=== PATIENT | female | born 1940 | race Caucasian/White ===

== ENCOUNTER → 2017-06-18 | Outpatient (CLI) | payer MEDICARE ==
[~2017-06-18] MED LIST: ASPI-983 PO; CHLO25TA22 PO; CLD600T PO; FELO5TAB3 PO; FLD5TCR; FLD5TCR PO; KCL10CCR PO; LEVO500T69 PO; LNS30CCR; LVT.1T PO; METR500T PO; NFCHLORT25 PO; OMEP40CA36 PO; PEG250PW PO; PLENDIL; TRIA1CAP4 PO; [UNRECOGNIZED DRUG - OTHER]; [UNRECOGNIZED DRUG - OTHER]
--- NOTE | 2017-06-19 14:12 | Diagnostic Imaging Report ---
EXAMINATION: Bilateral screening mammogram 2D views with tomosynthesis. The current study was also evaluated with a Computer Aided Detection (CAD) system. INDICATION: Screening. PERSONAL HISTORY: No current complaints stated on the questionnaire. COMPARISON: 03/13/2016. FINDINGS: The breasts are composed of scattered fibroglandular densities. Occasional benign-appearing calcifications are noted. Allowing for technique and positional differences, no suspicious change is seen. IMPRESSION: No significant change. ACR BI-RADS Category 2: Benign findings. Result letter will be mailed to the patient. Note: At least 10% of breast cancer is not imaged by mammography. Dictated by: Dictated on workstation # [id number]
== END ==
LOC: RAD 10:41
PROVIDERS: ATTEND Nurse Practitioner Family
DX: Z12.31 Encounter for screening mammogram for malignant neoplasm of breast (principal)
CPT/HCPCS: 77067

== ENCOUNTER → 2018-06-24 | Outpatient (CLI) | payer MEDICARE ==
--- NOTE | 2018-06-27 16:51 | Diagnostic Imaging Report ---
Indication: Routine screening. Comparison is made with prior mammogram from 06/18/2017 and 03/13/2016. 2-D and 3-D bilateral screening mammography was performed with CAD. Scattered fibroglandular densities are identified bilaterally. Benign-appearing calcifications are noted bilaterally. Intraparenchymal lymph nodes in the outer portion of the left breast is stable. No new mass or malignant-appearing microcalcifications are seen. Axillae are unremarkable. Impression: BI-RADS category 2 No mammographic features suspicious for malignancy are identified. ACR BI-RADS Category 2: Benign findings. Result letter will be mailed to the patient. Note: At least 10% of breast cancer is not imaged by mammography. Dictated by: Dictated on workstation # [id number]
== END ==
LOC: RAD 11:08
PROVIDERS: ATTEND Nurse Practitioner Family
DX: Z12.31 Encounter for screening mammogram for malignant neoplasm of breast (principal)
CPT/HCPCS: 77067

== ENCOUNTER 2018-07-05 10:03 | Outpatient (CLI) | payer MEDICARE ==
[~2018-07-05] VITALS: Ht 170.2 cm; Wt 106.3 kg
[2018-07-05] MEDS ORDERED: CALC-140 PO (10:13)
[2018-07-05] MEDS ORDERED: LEVO100T7 PO (10:13)
[2018-07-05] MEDS ORDERED: POTA10TA10 PO (10:13)
[2018-07-05 10:20] VITALS: BP 144/84
[2018-07-05 11:13] LABS: BASOPHILS # (AUTO) 0.1 10^3/uL (0.0-0.1); BASOPHILS % (AUTO) 1 % (0-10); EOSINOPHILS # (AUTO) 0.2 10^3/uL (0.0-0.3); EOSINOPHILS % (AUTO) 3 % (0-10); HEMATOCRIT 45 % (35-52); HEMOGLOBIN 15.9 G/DL (11.5-16.0); LYMPHOCYTES # (AUTO) 2.2 X 10^3 (1.0-4.0); LYMPHOCYTES % (AUTO) 28 % (12-44); MEAN CORPUSCULAR HEMOGLOBIN 29 PG (25-34); MEAN CORPUSCULAR HGB CONC 35 G/DL (32-36); MEAN CORPUSCULAR VOLUME 82 FL (80-99); MEAN PLATELET VOLUME 10.2 FL (7.4-10.4); MONOCYTES # (AUTO) 0.5 X 10^3 (0.0-1.0); MONOCYTES % (AUTO) 7 % (0-12); NEUTROPHILS # (AUTO) 4.8 X 10^3 (1.8-7.8); NEUTROPHILS % (AUTO) 61 % (42-75); PLATELET COUNT 264 10^3/uL (130-400); RED BLOOD COUNT 5.53 10^6/uL (4.35-5.85); WHITE BLOOD COUNT 7.8 10^3/uL (4.3-11.0)
[2018-07-05 11:17] LABS: BILIRUBIN,URINE NEGATIVE (NEGATIVE); CLARITY,URINE CLEAR; COLOR,URINE YELLOW; GLUCOSE, URINE (UA) NEGATIVE (NEGATIVE); KETONES,URINE NEGATIVE (NEGATIVE); LEUKOCYTE ESTERASE ,URINE NEGATIVE (NEGATIVE); NITRITE,URINE NEGATIVE (NEGATIVE); PH,URINE 8 (5-9); PROTEIN,URINE NEGATIVE (NEGATIVE); UROBILINOGEN,URINE NORMAL (NORMAL)
[2018-07-05 11:27] LABS: BACTERIA,URINE NEGATIVE /HPF
[2018-07-05 11:27] LABS: PROTHROMBIN TIME PATIENT 13.1 SEC (12.2-14.7)
[2018-07-05 11:32] LABS: ERYTHROCYTE SEDIMENTATION RATE 2 MM/HR (0-30)
[2018-07-05 12:09] LABS: ALANINE AMINOTRANSFERASE 18 U/L (0-55); ALBUMIN 4.3 GM/DL (3.2-4.5); ALKALINE PHOSPHATASE 80 U/L (40-136); BILIRUBIN,TOTAL 0.9 MG/DL (0.1-1.0); BUN/CREATININE RATIO 28; CALCIUM 9.9 MG/DL (8.5-10.1); CARBON DIOXIDE 24 MMOL/L (21-32); CHLORIDE 101 MMOL/L (98-107); CREATININE SERUM 0.83 MG/DL (0.60-1.30); GFR ESTIMATED > 60; GLUCOSE 98 MG/DL (70-105); POTASSIUM 3.3 MMOL/L (3.6-5.0); SODIUM 138 MMOL/L (135-145); TOTAL PROTEIN 7.4 GM/DL (6.4-8.2)
--- NOTE | 2018-07-05 13:02 | Diagnostic Imaging Report ---
PATIENT HISTORY: Preoperative evaluation of cardiac and pulmonary structures prior to administration of anesthesia. TECHNIQUE: Two views of the chest. COMPARISON: 11/23/2015. FINDINGS: The lung volumes are normal. No focal consolidation is seen. No large pleural effusion or pneumothorax is seen. The cardiomediastinal silhouette is normal in size and contour. No acute osseous abnormality is seen. There are mild degenerative changes in the thoracic spine. IMPRESSION: No acute pulmonary abnormality seen. Dictated by: Dictated on workstation # [id number]
== END 2018-07-05 15:27 | disposition home or self-care (01) ==
LOC: PREOP 10:03
PROVIDERS: ATTEND Orthopaedic Surgery
DX: Z01.810 Encounter for preprocedural cardiovascular examination (principal); Z01.811 Encounter for preprocedural respiratory examination; Z01.812 Encounter for preprocedural laboratory examination; M17.11 Unilateral primary osteoarthritis, right knee; R53.83 Other fatigue; Z11.2 Encounter for screening for other bacterial diseases
CPT/HCPCS: 36415; 71046; 80053; 81000; 85025; 85610; 85652; 86850; 86900; 86901; 87081; 93005

== ENCOUNTER → 2019-08-05 | Outpatient (CLI) | payer MEDICARE ==
[~2019-08-05] MED LIST changes: +CALC-140 PO; +LEVO100T7 PO; +POTA10TA10 PO
--- NOTE | 2019-08-05 13:12 | Diagnostic Imaging Report ---
INDICATION: Routine screening. COMPARISON: 06/24/2018 and 06/18/2017. TECHNIQUE: 2D and 3D bilateral screening mammography was performed with CAD. FINDINGS: Scattered fibroglandular densities are identified bilaterally. There are scattered benign calcifications bilaterally. Benign nodular densities in both breasts appear stable. No spiculated mass or malignant appearing microcalcifications are seen. The axillae are unremarkable. IMPRESSION: No mammographic features suspicious for malignancy are identified. ACR BI-RADS Category 2: Benign findings. Result letter will be mailed to the patient. Note: At least 10% of breast cancer is not imaged by mammography. Dictated by: Dictated on workstation # [id number]
== END ==
LOC: RAD 11:23
PROVIDERS: ATTEND Family Medicine
DX: Z12.31 Encounter for screening mammogram for malignant neoplasm of breast (principal)
CPT/HCPCS: 77067

== ENCOUNTER 2020-08-25 05:30 | Outpatient (RCR) | payer MEDICARE ==
[~2020-08-25] VITALS: Ht 175 cm; Wt 100.0 kg
[~2020-08-25 05:30] MED LIST changes: +ASPI-1238 PO; -ASPI-983 PO; -FELO5TAB3 PO; +L.AC1CAP6 PO; +OMEP40CA27 PO; +POTA10CA43 PO; +ZINC50TA11 PO
== END 2020-08-25 10:08 | disposition home or self-care (01) ==
LOC: PREOP 05:30
PROVIDERS: ATTEND Internal Medicine
DX: Z01.812 Encounter for preprocedural laboratory examination (principal); Z12.11 Encounter for screening for malignant neoplasm of colon; Z20.822 Contact with and (suspected) exposure to COVID-19; Z80.0 Family history of malignant neoplasm of digestive organs
CPT/HCPCS: 87635

== ENCOUNTER 2020-08-27 07:14 | Day surgery (SDC) | payer MEDICARE ==
--- NOTE | 2020-08-17 08:58 | HISTORY AND PHYSICAL ---
DATE OF SERVICE: COLONOSCOPY HISTORY AND PHYSICAL HISTORY OF PRESENT ILLNESS: The patient is a 80-year-old white female referred for screening colonoscopy. Her mother succumbed to colon cancer in her late 60s. Brother had 2 polyps, possibly malignant, have removed in his 60s as well. He did not require colon surgery. She reports otherwise she has been feeling well. On one occasion, she did note some bright red blood per rectum that she attributed to hemorrhoids over a month ago. This has not recurred. She does have some intermittent diarrhea. She had been given Flagyl, which causes a lot of nausea and interestingly lead to constipation while she was on it. She has backed usual bowel habit of having loose stools about once a week. She will have a 2 or 3, mostly in the morning. Denies any nocturnal stool. Weight has been stable. She denies any significant abdominal pain, cramping or bloating unless she is having constipation. PAST MEDICAL HISTORY: Significant for several bouts of diverticulitis. She did require admission several years ago for IV antibiotics. She has history of hypertension and hypothyroidism for which she is on replacement and has known gastroesophageal reflux, she reports well controlled on omeprazole 40 mg daily. PAST SURGICAL HISTORY: She had a cholecystectomy in 1989, right breast biopsy that was benign in 1988. She had one ovary and hysterectomy in 1967 secondary to endometriosis. She had had the other ovary removed at the age of 19 due to a benign growth. Her last colonoscopy was in 2012 revealing moderate diverticular disease with no neoplasia, previous polyp. She had had several adenomatous colonic polyps were removed. No dysplasia. SOCIAL HISTORY: She is retired and lives with her spouse with no smoking and only rare alcohol intake. PHYSICAL EXAMINATION: GENERAL: Reveals a pleasant white female in no acute distress. HEENT: Remarkable. Mallampati 3 pharyngeal configuration. CHEST: Clear to auscultation. CARDIOVASCULAR: Reveals a regular rate and rhythm without murmur, S3 or S4. ABDOMEN: Soft, supple without mass, organomegaly or tenderness. EXTREMITIES: Reveal no cyanosis, clubbing or edema. ASSESSMENT AND PLAN: Due to family history for colon cancer in her mother and possibly brother, she is set up for screening colonoscopy. Due to Mallampati 3 oropharyngeal configuration and history of diverticulitis, we will be doing the patient under Diprivan based anesthesia. I thank you for the referral of this pleasant lady. Job ID: [id number] DocumentID: [id number] Dictated Date: 08/02/2020 13:31:06 [employer] Date: 08/02/2020 14:01:56 Dictated By: SAUL POND MD
[~2020-08-27] VITALS: Ht 175 cm; Wt 100.0 kg
[2020-08-27] MEDS ORDERED: D5 LR IV SOLUTION 1,000 ML IV STA (07:24)
[2020-08-27] MEDS ORDERED: LIDOCAINE JELLY 2% 6 ML SYRINGE MM PRN (07:30)
[2020-08-27 07:32] VITALS: BP 176/91
[2020-08-27] MEDS ORDERED: D5 LR IV SOLUTION 1,000 ML IV ONE (07:33)
[2020-08-27] MEDS ORDERED: proPOfol 200 MG/20 ML (DIPRIVAN) VIAL IV ONE (08:09)
--- NOTE | 2020-08-27 08:09 | Pre-Op Note & Conscious Sedat ---
Pre-Operative Progress Note H&P Reviewed The H&P was reviewed, patient examined and no changes noted. Date H&P Reviewed: Aug 27, 2020 Time H&P Reviewed: 08:09 Conscious Sedation Pre-Proced ASA Score 2 For ASA 3 and 4: Consider anesthesia and medical clearance. Also, for patients with a history of failed moderate sedation consider anesthesia. Airway Lungs Heart ASA score ASA 1: a normal healthy patient ASA 2: a patient with a mild systemic disease (mid diabetes, controlled hypertension, obesity ASA 3: a patient with a severe systemic disease that limits activity (angina, COPD, prior Myocardial infarction) ASA 4: a patient with an incapacitating disease that is a constant threat to life (CHF, renal failure) ASA 5: a moribund patient not expected to survive 24 hrs. (ruptured aneurysm) ASA 6: a declared brain- patient whose organs are being harvested. For emergent operations, add the letter E after the classification Mallampati Classification Grade 3 Sedation Plan Analgesia, Amnesia, Plan communicated to team members, Discussed options with patient/fam, Discussed risks with patient/fam The patient is an appropriate candidate to undergo the planned procedure, sedation, and anesthesia. The patient immediately re-assessed prior to indication. SAUL POND MD Aug 27, 2020 08:09
[2020-08-27] MEDS ORDERED: LIDOCAINE JELLY 2% 6 ML SYRINGE ONE (08:10)
[2020-08-27 08:40] VITALS: BP 116/57
[2020-08-27 08:45] VITALS: BP 126/66
[2020-08-27 08:50] VITALS: BP 139/66
[2020-08-27 09:20] VITALS: BP 155/79
[2020-08-27 09:27] VITALS: BP 155/79
--- NOTE | 2020-08-27 10:15 | Anesthesia-General Post-Op ---
MAC Patient Condition Mental Status/LOC: Same as Preop Cardiovascular: Satisfactory Nausea/Vomiting: Absent Respiratory: Satisfactory Pain: Controlled Complications: Absent Post Op Complications Complications None Follow Up Care/Instructions Patient Instructions None needed. Anesthesiology Discharge Order Discharge Order Patient was seen after the procedure and she was doing well, no complaints, stable vital signs, no apparent adverse anesthesia problems. DOYLE CHU DO Aug 27, 2020 10:15
--- NOTE | 2020-08-27 16:59 | OPERATIVE REPORT ---
DATE OF SERVICE: COLONOSCOPY SUMMARY INDICATION FOR THE PROCEDURE: Screening colon, family history for colon cancer. DESCRIPTION OF PROCEDURE: The patient was placed in the left lateral decubitus position. Prior to undergoing colonoscopy, digital rectal evaluation was performed. Anal sphincter tone was normal and the perianal reflexes intact. Nonthrombosed palpable internal hemorrhoids were noted on digital rectal evaluation with no other abnormalities being noted. The colonoscope was inserted into the rectum and under direct visualization advanced to cecum. The cecum was identified by identification of the ileocecal valve and the cecal strap. Photographic documentation was obtained. Quality of prep was fair. Despite Diprivan based anesthesia, the patient did have an irritable bowel type response with colonic manipulation. There was no evidence for external hemorrhoids and several grade II internal hemorrhoid complexes were noted. The remainder of the rectum was unremarkable. Moderate diverticular disease without evidence for diverticulitis was noted throughout the sigmoid colon. There was one questionable proximal sigmoid polyp. It was biopsied and ablated and submitted for histopathology. A diminutive 3 x 4 mm sessile polyp was noted in the proximal ascending colon as well as a similar polyp at the splenic flexure. Both were biopsied and ablated with minimal blood loss. No further abnormalities were noted on colonoscopy to the cecum. ASSESSMENT: 1. Two possibly and possibly three diminutive polyps were removed via hot forceps today. Considering this patient's age and medical comorbidities as long as there are no surprise on histopathology report, would not advocate future surveillance colonoscopy despite family history. 2. Moderate diverticular disease confined to the sigmoid colon was present. 3. Several grade II internal hemorrhoid complexes were noted nonthrombosed. I thank you for the referral of this pleasant lady. Job ID: [id number] DocumentID: [id number] Dictated Date: 08/27/2020 10:34:00 [employer] Date: 08/27/2020 16:58:37 Dictated By: SAUL POND MD
== END 2020-08-27 09:29 | disposition home or self-care (01) ==
LOC: ENDO 07:14
PROVIDERS: ATTEND Internal Medicine
DX: Z12.11 Encounter for screening for malignant neoplasm of colon (principal); D12.2 Benign neoplasm of ascending colon; D12.3 Benign neoplasm of transverse colon; K52.9 Noninfective gastroenteritis and colitis, unspecified; K64.1 Second degree hemorrhoids; K57.30 Diverticulosis of large intestine without perforation or abscess without bleeding; I10 Essential (primary) hypertension; E03.9 Hypothyroidism, unspecified; K21.9 Gastro-esophageal reflux disease without esophagitis; Z79.899 Other long term (current) drug therapy; Z91.048 Other nonmedicinal substance allergy status; Z88.5 Allergy status to narcotic agent; Z88.1 Allergy status to other antibiotic agents; Z88.8 Allergy status to other drugs, medicaments and biological substances; Z90.710 Acquired absence of both cervix and uterus; Z83.71 Family history of colonic polyps; Z80.0 Family history of malignant neoplasm of digestive organs
CPT/HCPCS: 88305

== ENCOUNTER → 2020-10-12 | Outpatient (CLI) | payer MEDICARE ==
--- NOTE | 2020-10-12 13:56 | Diagnostic Imaging Report ---
INDICATION: Postmenopausal. COMPARISON: 01/06/2011 FINDINGS: The images from the previous exam of 01/06/2011 are not available. The report from the exam noted that the bone mineral density of the hips and spine was within normal limits. On this exam the total T score for the spine is -1.9. On the prior exam the T score was reported as 1.3. The total T score for the left hip is 0.4 and for the right hip 0.2. The respective T-scores on the prior study are 0.6 and 0.3. The T-scores for the femoral necks were not obtained from the prior study. On this exam the T score for the left femoral neck is -0.5 and for the right -0.3. AP Spine L1-L4: [BMD (g/cm2): 1.425] [T-Score: 1.9] [Z-Score: 2.5] [BMD Previous: 1.396] [BMD % Change: 2.1] LT Hip Neck: [BMD (g/cm2): 0.969] [T-Score: -0.5] [Z-Score: 0.9] LT Hip Total: [BMD (g/cm2):1.059] [T-Score:0.4] [Z-Score: 1.6] [BMD Previous: 1.082] [BMD % Change: -2.1] RT Hip Neck: [BMD (g/cm2):0.989] [T-Score:-0.3] [Z-Score:1.0] RT Hip Total: [BMD (g/cm2):1.030] [T-score:0.2] [Z-Score:1.3] [BMD Previous:1.042] [BMD % Change:-1.2] *Indicates significant change from prior examination based on 95% confidence level. World Health Organization criteria for BMD interpretation classify patients as Normal (T-score at or above -1.0), Osteopenic (T-score between -1.0 and -2.5) or Osteoporotic (T-score at or below -2.5). LIMITATIONS AND MODIFICATION: None. FRACTURE RISK (FRAX SCORE): The ten year probability of (%): Major Osteoporotic Fracture: [NA] Hip Fracture: [NA] IMPRESSION: 1. There has been a slight increase in the bone mineral density of the spine and an even smaller decrease in the bone mineral density of the total hip scores. However the values for the spine and total hips and for both femoral necks still remain within normal limits. 2. See below National Osteoporosis Foundation guidelines on when to potentially initiate pharmacologic therapy. Based on the National Osteoporosis Foundation Guidelines, pharmacologic treatment should be initiated in any of the following, unless clinical conditions suggest otherwise: * Any patient with prior fragility fracture of the hip or vertebrae. A spine fracture indicates 5X risk for subsequent spine fracture and 2X risk for subsequent hip fracture. * Osteoporosis (T-score <-2.5). * Postmenopausal women and men age 50 and older with low bone mass/osteopenia (T-score between -1.0 and -2.5) by DXA and 10-year major osteoporotic fracture greater than 20% or a 10-year probability of hip fracture greater than 3%. These fracture risks are supplied above in the FRAX score, if applicable. * Clinician judgement and/or patient preferences may indicate treatment for people with 10-year fracture probabilities above or below these levels. Dictated by: Dictated on workstation # [id number]
--- NOTE | 2020-10-12 15:52 | Diagnostic Imaging Report ---
INDICATION: Routine screening. COMPARISON: 08/05/2019 and 06/24/2018. TECHNIQUE: 2D and 3D bilateral screening mammography was performed with CAD. FINDINGS: Scattered fibroglandular densities are noted bilaterally. Benign-appearing nodules in both breasts appear stable. There are benign calcifications in both breasts. No spiculated mass or malignant appearing microcalcifications are seen. The axillae are unremarkable. IMPRESSION: No mammographic features suspicious for malignancy are identified. ACR BI-RADS Category 2: Benign findings. Result letter will be mailed to the patient. Note: At least 10% of breast cancer is not imaged by mammography. Dictated by: Dictated on workstation # [id number]
== END ==
LOC: RAD 13:00
PROVIDERS: ATTEND Family Medicine
DX: Z12.31 Encounter for screening mammogram for malignant neoplasm of breast (principal); Z78.0 Asymptomatic menopausal state
CPT/HCPCS: 77063; 77067; 77080

== ENCOUNTER 2021-01-03 11:17 | Outpatient (RCR) | payer MEDICARE | END 2021-01-03 12:02 | disposition home or self-care (01) | PROVIDERS: ATTEND Family Medicine | DX: M25.561 Pain in right knee (principal); R26.89 Other abnormalities of gait and mobility; I10 Essential (primary) hypertension ==

== ENCOUNTER 2021-04-04 14:30 | Outpatient (RCR) | payer MEDICARE ==
[~2021-04-04 14:30] MED LIST changes: -OMEP40CA27 PO; +OMEP40CA6 PO
== END 2021-04-28 | disposition home or self-care (01) ==
PROVIDERS: ATTEND Orthopaedic Surgery
DX: Z47.1 Aftercare following joint replacement surgery (principal); Z96.651 Presence of right artificial knee joint

== ENCOUNTER 2021-05-11 15:48 | Outpatient (RCR) | payer MEDICARE | END 2021-05-11 16:30 | disposition home or self-care (01) | PROVIDERS: ATTEND Orthopaedic Surgery | DX: Z96.651 Presence of right artificial knee joint (principal) ==

== ENCOUNTER → 2022-01-18 | Outpatient (CLI) | payer MEDICARE ==
--- NOTE | 2022-01-18 18:31 | Diagnostic Imaging Report ---
INDICATION: Routine screening. COMPARISON: Prior mammograms from 10/12/2020 and 08/05/2019. EXAMINATION: 2D and 3D bilateral screening mammography was performed with CAD. The current study was also evaluated with a Computer Aided Detection (CAD) system. FINDINGS: Scattered fibroglandular densities are identified, bilaterally. Intraparenchymal lymph node in the upper outer left breast is stable. No spiculated mass or malignant-appearing microcalcifications are seen. There are benign calcifications, bilaterally. Axillae are unremarkable. IMPRESSION: No mammographic features suspicious for malignancy are identified. ACR BI-RADS Category 2: Benign findings. Result letter will be mailed to the patient. Note: At least 10% of breast cancer is not imaged by mammography. Dictated by: Dictated on workstation # [id number]
== END ==
LOC: RAD 10:42
PROVIDERS: ATTEND Family Medicine
DX: Z12.31 Encounter for screening mammogram for malignant neoplasm of breast (principal)
CPT/HCPCS: 77063; 77067